=== PATIENT | male | born 1980 | race Caucasian/White ===

== ENCOUNTER 2018-09-12 13:00 | Outpatient (CLI) | payer OTHER | END 2018-09-12 23:59 | disposition home or self-care (01) | LOC: CFH 13:00 | PROVIDERS: ATTEND Family Medicine | DX: S02.31XA Fracture of orbital floor, right side, initial encounter for closed fracture (principal); S00.83XA Contusion of other part of head, initial encounter; J32.0 Chronic maxillary sinusitis; X58.XXXA Exposure to other specified factors, initial encounter; Y93.89 Activity, other specified; Y92.89 Other specified places as the place of occurrence of the external cause; Y99.8 Other external cause status | CPT/HCPCS: 70486 ==

== ENCOUNTER 2018-09-12 15:33 | Emergency (ER) | payer OTHER ==
[~2018-09-12] VITALS: Ht 177.8 cm; Wt 95.0 kg
--- NOTE | 2018-09-12 16:09 | NUR ---
PT RESTING ON GURNEY COMFORTABLY. SIGNIFICANT OTHER AT BEDSIDE. PT PLACED ON CYCLING BP, CONTINOUS PULSE OX. CALL LIGHT IN REACH
[2018-09-12 16:11] VITALS: BP 116/66
--- NOTE | 2018-09-12 17:15 | NUR ---
DR. GAITAN AT BEDSIDE.
--- NOTE | 2018-09-12 17:49 | NUR ---
Patient/Caregiver given discharge instructions and they have confirmed that they understand the instructions. Patient ambulatory with steady gait.
== END 2018-09-12 17:50 | disposition home or self-care (01) ==
LOC: ED 15:56
DX: S02.31XA Fracture of orbital floor, right side, initial encounter for closed fracture (principal); X58.XXXA Exposure to other specified factors, initial encounter; Y93.39 Activity, other involving climbing, rappelling and jumping off; Y92.89 Other specified places as the place of occurrence of the external cause; Y99.8 Other external cause status
CPT/HCPCS: 99281